=== PATIENT | female | born 1955 | race Caucasian/White ===

== ENCOUNTER → 2017-02-22 | Outpatient (CLI) | payer BC ==
[~2017-02-22] MED LIST: ALPRAZOLAM PO; CELEXA PO; NORVASC PO; [UNRECOGNIZED DRUG - OTHER]
--- NOTE | ~2017-02-22 | MY11 ---
[facility] A Service of [facility] RADIOLOGY TEXT RESULTS PATIENT: SALLY CASILLAS LOCATION: [facility] : 51 UNIT #: [id number] AGE: [address]: Qiana Monson APRN SEX: F ORDER DR: [id number] [address] [address] [id number] O MR#: [id number] Acc #: [id number] NAME: SALLY CASILLAS : 1955 SEX: F STUDY DATE/TIME: 02/22/2017 11:17 UNIT: [facility] ROOM: STUDY DESCRIPTION: MY Mammogram Screening Dig Gonsalo Attending Physician: Qiana Monson A.P.R.N. Referring Physician: Qiana Monson A.P.R.N. Ordering Physician: Qiana Monson A.P.R.N. Primary Care Physician: Qiana Monson A.P.R.N. MEDICAL IMAGING REPORT This report is preliminary unless electronic signature is present. EXAM Digital screening mammogram 02/22/2017 HISTORY 61-year-old woman no risk elevation. Annual screen. COMPARISON Mammograms date to 03/29/2004 with most recent 03/27/2016. FINDINGS Digital imaging of each breast was completed utilizing screening protocol. Review includes FDA-approved CAD device. Breast parenchyma remains moderately dense with a fibronodular pattern again noted upper outer quadrants bilaterally. Occasional benign calcification noted. I see no interval occurring microcalcifications. There are no suspicious mass characteristics and no architectural deformity. IMPRESSION Benign mammogram. Annual screening recommended. Patients over the age of 40 are entered into a reminder system with target due date for the next mammogram. A result letter will also be sent to the patient. BIRADS: 2 Benign finding Dictated by... Griffin Dove M.D. [facility] A Service of [facility] RADIOLOGY TEXT RESULTS PATIENT: SALLY CASILLAS LOCATION: [facility] : 51 UNIT #: [id number] AGE: [address]: Qiana Monson APRN SEX: F ORDER DR: THIS IS AN ELECTRONICALLY VERIFIED REPORT Griffin Dove M.D. at 02/26/2017 9:42 AM PRESTON/paige TD: 02/22/2017 12:38 JOB #: [id number] MEDICAL IMAGING REPORT Page 1 of 1
== END | disposition home or self-care (01) ==
LOC: SMAM 10:36
DX: Z12.31 Encounter for screening mammogram for malignant neoplasm of breast (principal)
CPT/HCPCS: G0202